=== PATIENT | female | born 1960 | race Two or more races ===

== ENCOUNTER 2016-09-04 15:10 | Emergency (ER) | payer OTHER ==
[~2016-09-04] VITALS: Ht 167.6 cm; Wt 69.9 kg
[2016-09-04 15:16] VITALS: BP 127/77
[2016-09-04] MEDS ORDERED: SUMATRIPTAN 6MG/0.5ML SQ ONE ×2 (15:59→16:00)
[2016-09-04] MEDS ORDERED: METOCLOPRAMIDE 5 MG/ML, 2ML ONE (15:59)
[2016-09-04] MEDS ORDERED: DIPHENHYDRAMINE 50 MG/ML, 1ML ONE (15:59)
[2016-09-04] MEDS ORDERED: DEXAMETHASONE 4 MG/ML, 5ML ONE (15:59)
[2016-09-04] MEDS ORDERED: KETOROLAC 30 MG/1 ML ONE (15:59)
[2016-09-04] MEDS ORDERED: DEXAMETHASONE 4 MG/ML, 1ML IVPush ONE (16:00)
[2016-09-04] MEDS ORDERED: DIPHENHYDRAMINE 50 MG/ML, 1ML IVPush ONE (16:00)
[2016-09-04] MEDS ORDERED: METOCLOPRAMIDE 5 MG/ML, 2ML IVPush ONE (16:00)
[2016-09-04] MEDS ORDERED: KETOROLAC 30 MG/1 ML IVPush ONE (16:00)
[2016-09-04] MEDS ORDERED: SODIUM CHLORIDE FLUSH 10ML SYR IVF ONE (16:00)
[2016-09-04] MEDS ORDERED: SODIUM CHLORIDE 0.9% 1,000ML IVBOLUS ONE (16:00)
== END 2016-09-04 17:18 | disposition home or self-care (01) ==
LOC: ED 16:45
DX: G43.109 Migraine with aura, not intractable, without status migrainosus (principal)
CPT/HCPCS: 70450; 96361; 96372; 96374; 96375; 99284; J1100; J1200; J1885; J2765; J3030; J7030

== ENCOUNTER → 2019-03-19 | Outpatient (CLI) | payer OTHER | END | disposition home or self-care (01) | LOC: CARD 10:30 | PROVIDERS: ATTEND Family Medicine | DX: R07.9 Chest pain, unspecified (principal); Z79.899 Other long term (current) drug therapy | CPT/HCPCS: 93017 ==